=== PATIENT | male | born 1970 | race American Indian/Alaskan Native ===

== ENCOUNTER 2024-03-08 13:57 | Outpatient (AMB) | payer MEDICAID, SELFPAY ==
[2024-03-08 14:28] VITALS: BP 130/85; PULSE 76; RESP 18; TEMP 36.2; O2SAT 98; BMI 30.9
--- NOTE | 2024-03-08 14:28 | PD.ORTHCLVIS ---
Vital signs 03/08/24 14:28 Height 2.08 m Height Method Stated Weight 133.81 kg Weight Measurement Method Standing Scale BMI 30.9 BP 130/85 H Blood Pressure Source Automatic Cuff Blood Pressure Location Right Upper Arm Position Sitting Respiration 18 Pulse 76 Pulse Source Monitor Temp 97.2 F Temp Source Temporal Artery Scan Pulse Oximetry (%) 98 Oxygen Delivery Method Room Air Med/Allergies Allergies & Medications Allergies No Known Allergies Allergy (Verified 03/08/24 14:28) Medication Reconciliation meloxicam 7.5 mg tablet 7.5 mg PO QDAY #45 tabs 08/15/23 [Rx Confirmed 03/08/24] atorvastatin 10 mg tablet 10 mg PO QDAY 11/24/23 [History Confirmed 03/08/24] furosemide 20 mg tablet (Lasix) 20 mg PO QDAY 11/24/23 [History Confirmed 03/08/24] semaglutide 1 mg/dose (4 mg/3 mL) subcutaneous pen injector (Ozempic) 1 mg subcut QWEEK 11/24/23 [History Confirmed 03/08/24] doxycycline hyclate 100 mg tablet 100 mg PO BID #14 tabs 11/27/23 [Rx Confirmed 03/08/24] pregabalin 75 mg capsule 75 mg PO BID #45 caps 11/27/23 [Rx Confirmed 03/08/24] sennosides 8.6 mg-docusate sodium 50 mg tablet (Senna-S) 1 tab-cap PO QDAY #30 tabs 11/27/23 [Rx Confirmed 03/08/24] acetaminophen 500 mg tablet (Acetaminophen Extra Strength) 1,000 mg (2 x 500 mg) PO Q6H PRN pain #90 tabs 12/12/23 [Rx Confirmed 03/08/24] oxycodone 5 mg tablet 5 mg PO Q6H PRN pain #28 tabs 12/23/23 [Rx Confirmed 03/08/24] cyclobenzaprine 5 mg tablet 5 mg PO QHS PRN muscle spasm #30 tabs 01/26/24 [Rx Confirmed 03/08/24] gabapentin 300 mg capsule 300 mg PO QHS #30 caps 01/26/24 [Rx Confirmed 03/08/24] meloxicam 7.5 mg tablet 7.5 mg PO QDAY #30 tabs 02/20/24 [Rx Confirmed 03/08/24] Subjective Visit Visit for: follow up visit and knee Immunization / Flu Flu Vaccine in the Last 12 Months: No Flu Vaccine Exclusion Criteria: No Exclusion Criteria History of Present Illness Chief complaint: 6 WEEK FOLLOW UP Date of 1st surgery (if applicable): 18 YEARS AGOS RT MENISCUS TEAR Omid is 12 weeks postop status post right total knee replacement. I showed him his x-rays of the intraoperative notch. He is doing well. He is bearing full weight. Pain Pain level (0-10): 8 Pain duration: ALL DAY Pain location: anterior and posterior Pain quality: sharp, dull and aching Pain timing: increases with activity Associated signs & symptoms: stiffness Ambulatory data Ambulatory device: none Treatments Improvement with previous injections: No Improvement with PT: No Improvement with NSAIDS: n/a Review of Systems Review of Systems: All systems negative unless otherwise noted in HPI. Exam Exam Patient is in no acute distress and is cooperative with the examination today. Breathing is nonlabored. In no respiratory distress. Bilateral extremities were evaluated and demonstrates sensation intact to light touch. Palpable pedal pulses are present. No significant edema is present. Bilateral hips were examined. The patient has no pain with log roll of the hips. Internal rotation to 30 degrees and external rotation to 30 degrees is painless. Negative FADIR. The left knee was examined. The left knee is in [varus] alignment. Range of motion from [0-115] degrees. Knee is stable to varus and valgus as well as AP translation with <5mm. Patient has a [negative] McMurrays. There is [no] pain with patellofemoral compression and [no] crepitus noted. The knee is [tender] to palpation [medially]. Right knee incision is clean dry and intact. Range of motion is 0 to 105 degrees Xrays demonstrate a knee replacement on the right in good alignment and position Assessment and Plan Problem List (1) History of total right knee replacement: Status: Acute Plan: Patient is doing well s/p R TKA. His left knee hurts significantly more and he would like a knee injection. Recommend knee cortisone injection as patient would like to proceed with conservative treatment at this time. The risks and benefits of the procedure were reviewed with the patient and patient gave verbal consent to continue with the procedure. Procedure: performed by Dr. Thomas Using sterile technique the left knee was thoroughly prepped with alcohol, and approximately 1 cc of Kenalog 40 mg/mL and 4 cc of 1% lidocaine was injected without resistance into the medial tibial femoral joint space. The patient tolerated the procedure. Office Procedures GNS Level of Care Nursing/Assessment Patient Status: Established Patient Nursing Assessment/Reassesment: Medication Reconciliation, Update PMH in EMR and Vital Signs Coordination of Care: Complex Care and Chronic Disease 1-5, Education Complex Pt/Fam, Consent,records obtained, informed consent, Results/Orders obtained and Staff clarify orders Established Patient Charge Established Patient Point Assignment: 95 Established Patient Point Charge: EP Level 3 (80-115) Surgical Proc/IM SQ injection Major Surgical Procedure: Yes (KNEE INJECTION) Medication Given Medication Given Medication Given: Yes Documented Dose Given: 4 Route: Infiitration Medication Given Medication Given Medication Given: Yes Documented Dose Given: 1 Route: Infiitration Office Meds Xylocaine 10 mg/mL (1 %) injection solution Performing Provider: Barrett Thomas MD Performing Location: [facility] Administered by: Angy Adame on 03/08/24 14:48 Dose Route Admin Location Dispensed Lot Number Expiration Date [facility] [employer] 20 mL Infiltration 20 mL [id number] 01/11/27 11636-410-17 [facility] triamcinolone acetonide 40 mg/mL suspension for injection Performing Provider: Barrett Thomas MD Performing Location: [facility] Administered by: Barrett Thomas MD on 03/08/24 14:48 Dose Route Admin Location Dispensed Lot Number Expiration Date [employer] 40 mg Infiltration 1 mL [id number] 12/11/25 [address]1900-5 [employer] Past Medical History Past Medical History Have you ever been diagnosed with any of the following: Neurological Problems Seizures: No Cardiology Problems Congestive Heart Failure: No Respiratory Problems Chronic Obstructive Pulmonary Disease (COPD): No Smoking: No Smoking Exposure: No Stomache/Intestinal Problems Hepatitis: No Obesity: Yes Genital/Urinary Problems Renal Disease: No Musculoskeletal Problems Arthritis: Yes Endocrine Problems Diabetes Mellitus Type 1: No Diabetes Mellitus Type 2: No Other Problems Hospitalization: Yes (as a child 5 yrs old for surgery) Shingles: No Blood Transfusions: No Blood Transfusion Reaction: No Anesthesia Reactions: No Chicken Pox: Yes Measles: Yes Mumps: Yes Cancer: No
== END 2024-03-08 14:55 | disposition home or self-care (01) ==
LOC: HODSRG 13:57
PROVIDERS: PCP Family Medicine; Referring Provider Family Medicine; Supervising Provider Orthopaedic Surgery Adult Reconstructive Orthopaedic Surgery; Visit Provider Orthopaedic Surgery Adult Reconstructive Orthopaedic Surgery
DX: Z47.1 Aftercare following joint replacement surgery (principal); Z96.651 Presence of right artificial knee joint; M25.562 Pain in left knee
CPT/HCPCS: 20610; 99213; J3301; J3490; G0463

== ENCOUNTER 2024-05-10 10:21 | Outpatient (AMB) | payer MEDICAID, SELFPAY ==
[2024-05-10 11:00] VITALS: BP 112/78; PULSE 73; RESP 18; TEMP 36.3; O2SAT 96; BMI 39.0
--- NOTE | 2024-05-10 11:00 | PD.ORTHCLVIS ---
Vital signs 05/10/24 11:00 Height 1.88 m Height Method Stated Weight 138.062 kg Weight Measurement Method Standing Scale BMI 39.0 BP 112/78 Blood Pressure Source Automatic Cuff Blood Pressure Location Right Upper Arm Position Sitting Respiration 18 Pulse 73 Pulse Source Monitor Temp 97.3 F Temp Source Temporal Artery Scan Pulse Oximetry (%) 96 Oxygen Delivery Method Room Air Med/Allergies Allergies & Medications Allergies No Known Allergies Allergy (Verified 05/10/24 11:01) Medication Reconciliation meloxicam 7.5 mg tablet 7.5 mg PO QDAY #45 tabs 08/15/23 [Rx Confirmed 05/10/24] atorvastatin 10 mg tablet 10 mg PO QDAY 11/24/23 [History Confirmed 05/10/24] furosemide 20 mg tablet (Lasix) 20 mg PO QDAY 11/24/23 [History Confirmed 05/10/24] semaglutide 1 mg/dose (4 mg/3 mL) subcutaneous pen injector (Ozempic) 1 mg subcut QWEEK 11/24/23 [History Confirmed 05/10/24] doxycycline hyclate 100 mg tablet 100 mg PO BID #14 tabs 11/27/23 [Rx Confirmed 05/10/24] pregabalin 75 mg capsule 75 mg PO BID #45 caps 11/27/23 [Rx Confirmed 05/10/24] sennosides 8.6 mg-docusate sodium 50 mg tablet (Senna-S) 1 tab-cap PO QDAY #30 tabs 11/27/23 [Rx Confirmed 05/10/24] acetaminophen 500 mg tablet (Acetaminophen Extra Strength) 1,000 mg (2 x 500 mg) PO Q6H PRN pain #90 tabs 12/12/23 [Rx Confirmed 05/10/24] oxycodone 5 mg tablet 5 mg PO Q6H PRN pain #28 tabs 12/23/23 [Rx Confirmed 05/10/24] cyclobenzaprine 5 mg tablet 5 mg PO QHS PRN muscle spasm #30 tabs 01/26/24 [Rx Confirmed 05/10/24] gabapentin 300 mg capsule 300 mg PO QHS #30 caps 01/26/24 [Rx Confirmed 05/10/24] meloxicam 7.5 mg tablet 7.5 mg PO QDAY #30 tabs 02/20/24 [Rx Confirmed 05/10/24] Exam Exam Patient is in no acute distress and is cooperative with the examination today. Breathing is nonlabored. In no respiratory distress. Bilateral extremities were evaluated and demonstrates sensation intact to light touch. Palpable pedal pulses are present. No significant edema is present. Bilateral hips were examined. The patient has no pain with log roll of the hips. Internal rotation to 30 degrees and external rotation to 30 degrees is painless. Negative FADIR. The left knee was examined. The left knee is in [varus] alignment. Range of motion from [0-115] degrees. Knee is stable to varus and valgus as well as AP translation with <5mm. Patient has a [negative] McMurrays. There is [no] pain with patellofemoral compression and [no] crepitus noted. The knee is [tender] to palpation [medially]. Right knee incision is clean dry and intact. Range of motion is 0 to 105 degrees Xrays demonstrate a knee replacement on the right in good alignment and position Assessment and Plan Problem List (1) History of total right knee replacement: Status: Acute Plan: Patient is doing well s/p R TKA. His left knee hurts significantly more and he would like a knee injection. Recommend knee cortisone injection as patient would like to proceed with conservative treatment at this time. The risks and benefits of the procedure were reviewed with the patient and patient gave verbal consent to continue with the procedure. Procedure: performed by Dr. Thomas Using sterile technique the left knee was thoroughly prepped with alcohol, and approximately 1 cc of Kenalog 40 mg/mL and 4 cc of 1% lidocaine was injected without resistance into the medial tibial femoral joint space. The patient tolerated the procedure. Office Procedures GNS Level of Care Nursing/Assessment Patient Status: Established Patient Nursing Assessment/Reassesment: Medication Reconciliation, Update PMH in EMR and Vital Signs Coordination of Care: Complex Care and Chronic Disease 1-5, Education Complex Pt/Fam, 1 Ins Authorization and Staff clarify orders Established Patient Charge Established Patient Point Assignment: 100 Established Patient Point Charge: EP Level 3 (80-115) Surgical Proc/IM SQ injection Major Surgical Procedure: Yes (knee injection) Medication Given Medication Given Medication Given: Yes Documented Dose Given: 4 Route: Infiitration Medication Given Medication Given Medication Given: Yes Documented Dose Given: 1 Route: Infiitration Office Meds Xylocaine 10 mg/mL (1 %) injection solution Performing Provider: Barrett Thomas MD Performing Location: [facility] Administered by: Barrett Thomas MD on 05/10/24 11:49 Dose Route Admin Location Dispensed Lot Number Expiration Date [facility] [employer] 20 mL Infiltration 20 mL [id number] 12/11/26 12172-047-97 [facility] triamcinolone acetonide 40 mg/mL suspension for injection Performing Provider: Barrett Thomas MD Performing Location: [facility] Administered by: Barrett Thomas MD on 05/10/24 11:49 Dose Route Admin Location Dispensed Lot Number Expiration Date [place] [employer] 40 mg Infiltration 1 mL [id number] 10/11/25 7305-7164-11 [employer] [place] Intake Visit Data Collection New Patient or Established: Established Patient (seen at [facility] within 3 years) Reason for Visit:: LT KNEE INJECTION Seen by Clinical Staff ONLY (RN/MA): No Treatment Manager Required: No PCP or OBGYN visit in last 3 months: Yes Do You Feel Safe at Home: Yes Questionairres Past Medical History Past Medical History Have you ever been diagnosed with any of the following: Neurological Problems Seizures: No Cardiology Problems Congestive Heart Failure: No Respiratory Problems Chronic Obstructive Pulmonary Disease (COPD): No Smoking: No Smoking Exposure: No Stomache/Intestinal Problems Hepatitis: No Obesity: Yes Genital/Urinary Problems Renal Disease: No Musculoskeletal Problems Arthritis: Yes Endocrine Problems Diabetes Mellitus Type 1: No Diabetes Mellitus Type 2: No Other Problems Hospitalization: Yes (as a child 5 yrs old for surgery) Shingles: No Blood Transfusions: No Blood Transfusion Reaction: No Anesthesia Reactions: No Chicken Pox: Yes Measles: Yes Mumps: Yes Cancer: No Subjective Visit Visit for: follow up visit, knee and injections Immunization / Flu Flu Vaccine in the Last 12 Months: No Flu Vaccine Exclusion Criteria: Refused by Patient History of Present Illness Chief complaint: LT KNEE INJECTION Patient is doing well status post right knee replacement. Has minimal pain. It is 6 months since the right knee was done. He reports the left knee is affecting his quality life and happiness. He would like repeat cortisone injection on the left knee for now Personal History BMI Counceling provided: Yes Pain Pain level (0-10): 7 Pain duration: CONSTANT Pain location: inside (medial), outside (lateral), anterior and posterior Pain quality: sharp and electric Pain timing: increases with activity Associated signs & symptoms: stiffness Ambulatory data Ambulatory device: none Walking distance (minutes): 10 Treatments Number of previous injections: 1 Improvement with previous injections: Yes Improvement with NSAIDS: n/a Review of Systems Review of Systems: All systems negative unless otherwise noted in HPI.
== END 2024-05-10 11:40 | disposition home or self-care (01) ==
LOC: HODSRG 10:21
PROVIDERS: PCP Family Medicine; Referring Provider Family Medicine; Supervising Provider Orthopaedic Surgery Adult Reconstructive Orthopaedic Surgery; Visit Provider Orthopaedic Surgery Adult Reconstructive Orthopaedic Surgery
DX: M25.562 Pain in left knee (principal); Z96.651 Presence of right artificial knee joint
CPT/HCPCS: 20610; 99213; J3301; J3490; G0463

== ENCOUNTER 2024-08-08 09:11 | Outpatient (AMB) | payer MEDICAID, SELFPAY ==
[2024-08-08 09:20] VITALS: BP 143/84; PULSE 81; RESP 18; TEMP 36.6; O2SAT 97; BMI 38.5
--- NOTE | 2024-08-08 09:20 | PD.ORTHCLVIS ---
Vital signs 08/08/24 09:20 Height 1.88 m Height Method Stated Weight 136.305 kg Weight Measurement Method Standing Scale BMI 38.5 BP 143/84 H Blood Pressure Source Automatic Cuff Blood Pressure Location Left Upper Arm Position Sitting Respiration 18 Pulse 81 Pulse Source Monitor Temp 97.8 F Temp Source Temporal Artery Scan Pulse Oximetry (%) 97 Oxygen Delivery Method Room Air Med/Allergies Allergies & Medications Allergies No Known Allergies Allergy (Verified 08/08/24 09:21) Medication Reconciliation meloxicam 7.5 mg tablet 7.5 mg PO QDAY #45 tabs 08/15/23 [Rx Confirmed 08/08/24] atorvastatin 10 mg tablet 10 mg PO QDAY 11/24/23 [History Confirmed 08/08/24] furosemide 20 mg tablet (Lasix) 20 mg PO QDAY 11/24/23 [History Confirmed 08/08/24] semaglutide 1 mg/dose (4 mg/3 mL) subcutaneous pen injector (Ozempic) 1 mg subcut QWEEK 11/24/23 [History Confirmed 08/08/24] doxycycline hyclate 100 mg tablet 100 mg PO BID #14 tabs 11/27/23 [Rx Confirmed 08/08/24] pregabalin 75 mg capsule 75 mg PO BID #45 caps 11/27/23 [Rx Confirmed 08/08/24] sennosides 8.6 mg-docusate sodium 50 mg tablet (Senna-S) 1 tab-cap PO QDAY #30 tabs 11/27/23 [Rx Confirmed 08/08/24] acetaminophen 500 mg tablet (Acetaminophen Extra Strength) 1,000 mg (2 x 500 mg) PO Q6H PRN pain #90 tabs 12/12/23 [Rx Confirmed 08/08/24] oxycodone 5 mg tablet 5 mg PO Q6H PRN pain #28 tabs 12/23/23 [Rx Confirmed 08/08/24] cyclobenzaprine 5 mg tablet 5 mg PO QHS PRN muscle spasm #30 tabs 01/26/24 [Rx Confirmed 08/08/24] gabapentin 300 mg capsule 300 mg PO QHS #30 caps 01/26/24 [Rx Confirmed 08/08/24] meloxicam 7.5 mg tablet 7.5 mg PO QDAY #30 tabs 02/20/24 [Rx Confirmed 08/08/24] ibuprofen 600 mg tablet 600 mg PO Q6H PRN pain #50 tabs 07/18/24 [Rx Confirmed 08/08/24] Exam Exam Patient is in no acute distress and is cooperative with the examination today. Breathing is nonlabored. In no respiratory distress. Bilateral extremities were evaluated and demonstrates sensation intact to light touch. Palpable pedal pulses are present. No significant edema is present. Bilateral hips were examined. The patient has no pain with log roll of the hips. Internal rotation to 30 degrees and external rotation to 30 degrees is painless. Negative FADIR. The left knee was examined. The left knee is in [varus] alignment. Range of motion from [0-115] degrees. Knee is stable to varus and valgus as well as AP translation with <5mm. Patient has a [negative] McMurrays. There is [no] pain with patellofemoral compression and [no] crepitus noted. The knee is [tender] to palpation [medially]. Right knee incision is clean dry and intact. Range of motion is 0 to 105 degrees Xrays demonstrate a knee replacement on the right in good alignment and position. The left knee demonstrates severe arthritis with complete joint space obliteration Medially and varus alignment Assessment and Plan Problem List (1) History of total right knee replacement: Status: Acute Plan: Patient is doing well s/p R TKA. He had a left knee injection recently and it did not help for a long period of time. We discussed total knee replacement is a reasonable option. He has significant obliteration of the medial joint space.He is failed conservative treatment including multiple injections, and anti-inflammatories The nature and purpose of the total knee replacement, alternative method(s) of treatment, the material risks involved, and the possibility of complications were fully explained to the patient. The patient does NOT have any of the following contraindications to TKA: - Active infection of the knee joint, OR - Active systemic bacteremia, OR - Active skin infection or open wound at surgical site, OR - Neuropathic arthritis, OR - Severe, rapidly progressive neurological disease, OR - Severe medical condition that makes risks of surgery outweigh the potential benefit The patient was told the most common risks and complications associated with a total knee replacement include, but are not limited to: blood clots in the leg, fatal pulmonary embolism, dislocation of the prosthesis, intraoperative and postoperative fractures of the femur or tibia, infection, failure of the prosthesis or grafting materials, complications from anesthesia, reactions to blood transfusions, postoperative leg length inequality, instability of the knee replacement, nerve damage or injury, vascular injury, delayed wound healing, infection, other injury or even . In addition, there are risks associated with anesthesia given during this operation. Also, the patient was told that after undergoing a total knee replacement there may still be persistent pain or disability. The patient was informed that the success of this operation in part depends upon the mechanical devices which are going to be implanted and that these devices can fail or malfunction, and may need to be repaired or replaced and there are no guarantees as to the longevity of this device or its parts and that it or its parts could fail prematurely. The patient was also notified that during the course of surgery, there may be a need to use bone graft from donors, and that any bone graft used will be carefully screened for communicable diseases, including AIDS, hepatitis, Deangelo-Creutzfeldt, or other diseases, but despite the screening procedures, there is a small chance that they could contract one of these diseases. Finally, the patient was asked to follow completely and fully with all advice and recommended treatments, and that recovery and ultimate outcome are affected by their compliance with recommended treatment. We discussed the risks, benefits and treatment alternatives, and the patient is interested in proceeding with surgery. We will try to set this up as expeditiously as possible. Office Procedures GNS Level of Care Nursing/Assessment Patient Status: Established Patient Nursing Assessment/Reassesment: Medication Reconciliation, Update PMH in EMR and Vital Signs Coordination of Care: Complex Care and Chronic Disease 1-5, Education Complex Pt/Fam, Consent,records obtained, informed consent, Results/Orders obtained and Staff clarify orders Established Patient Charge Established Patient Point Assignment: 95 Established Patient Point Charge: EP Level 3 (80-115) MA Intake Visit Data Collection New Patient or Established: Established Patient (seen at [facility] within 3 years) Reason for Visit:: 3 MTH L KNEE INJ F/U Seen by Clinical Staff ONLY (RN/MA): No PCP or OBGYN visit in last 3 months: Yes Hx Now: No Do You Feel Safe at Home: Yes Authorities Contacted: N/A Questionairres Past Medical History Past Medical History Have you ever been diagnosed with any of the following: Neurological Problems Seizures: No Cardiology Problems Congestive Heart Failure: No Respiratory Problems Chronic Obstructive Pulmonary Disease (COPD): No Smoking: No Smoking Exposure: No Stomache/Intestinal Problems Hepatitis: No Obesity: Yes Genital/Urinary Problems Renal Disease: No Musculoskeletal Problems Arthritis: Yes Endocrine Problems Diabetes Mellitus Type 1: No Diabetes Mellitus Type 2: No Other Problems Hospitalization: Yes (as a child 5 yrs old for surgery) Shingles: No Blood Transfusions: No Blood Transfusion Reaction: No Anesthesia Reactions: No Chicken Pox: Yes Measles: Yes Mumps: Yes Cancer: No Subjective Visit Visit for: follow up visit, knee and injections Immunization / Flu Flu Vaccine in the Last 12 Months: No Flu Vaccine Exclusion Criteria: No Exclusion Criteria History of Present Illness Chief complaint: LT KNEE INJECTION Patient is doing well status post right knee replacement. He Has minimal pain. He had surgery on the right knee approximately 8 months ago now. He has minimal pain and is doing fantastic. He reports the left knee is starting affect his quality life and happiness. We have treated him conservatively in the past with multiple injections on the left Personal History BMI Counceling provided: Yes Pain Pain level (0-10): 9 Pain duration: COMES AND GOES Pain location: inside (medial), outside (lateral) and anterior Pain quality: sharp, dull and aching Pain timing: night, increases with activity and stairs Associated signs & symptoms: stiffness Ambulatory data Ambulatory device: none Walking distance (minutes): 10 Treatments Number of previous injections: 3 Improvement with previous injections: No Improvement with PT: No Improvement with NSAIDS: no Review of Systems Review of Systems: All systems negative unless otherwise noted in HPI.
== END 2024-08-08 09:50 | disposition home or self-care (01) ==
LOC: HODSRG 09:11
PROVIDERS: PCP Family Medicine; Referring Provider Family Medicine; Supervising Provider Orthopaedic Surgery Adult Reconstructive Orthopaedic Surgery; Visit Provider Orthopaedic Surgery Adult Reconstructive Orthopaedic Surgery
DX: Z96.651 Presence of right artificial knee joint (principal); M25.862 Other specified joint disorders, left knee
CPT/HCPCS: 99213; G0463

== ENCOUNTER 2024-08-29 14:50 | Outpatient (AMB) | payer MEDICAID, SELFPAY ==
[2024-08-29 15:06] VITALS: BP 125/82; PULSE 80; RESP 18; TEMP 36.4; O2SAT 94; BMI 38.4
--- NOTE | 2024-08-29 15:06 | PD.ORTHCLVIS ---
Vital signs 08/29/24 15:06 Height 1.88 m Height Method Measured Weight 135.709 kg Weight Measurement Method Standing Scale BMI 38.4 BP 125/82 Blood Pressure Source Automatic Cuff Blood Pressure Location Right Upper Arm Position Sitting Respiration 18 Pulse 80 Pulse Source Monitor Temp 97.6 F Temp Source Temporal Artery Scan Pulse Oximetry (%) 94 L Oxygen Delivery Method Room Air Med/Allergies Allergies & Medications Allergies No Known Allergies Allergy (Verified 08/29/24 15:08) Medication Reconciliation meloxicam 7.5 mg tablet 7.5 mg PO QDAY #45 tabs 08/15/23 [Rx Confirmed 08/29/24] atorvastatin 10 mg tablet 10 mg PO QDAY 11/24/23 [History Confirmed 08/29/24] furosemide 20 mg tablet (Lasix) 20 mg PO QDAY 11/24/23 [History Confirmed 08/29/24] semaglutide 1 mg/dose (4 mg/3 mL) subcutaneous pen injector (Ozempic) 1 mg subcut QWEEK 11/24/23 [History Confirmed 08/29/24] doxycycline hyclate 100 mg tablet 100 mg PO BID #14 tabs 11/27/23 [Rx Confirmed 08/29/24] pregabalin 75 mg capsule 75 mg PO BID #45 caps 11/27/23 [Rx Confirmed 08/29/24] sennosides 8.6 mg-docusate sodium 50 mg tablet (Senna-S) 1 tab-cap PO QDAY #30 tabs 11/27/23 [Rx Confirmed 08/29/24] acetaminophen 500 mg tablet (Acetaminophen Extra Strength) 1,000 mg (2 x 500 mg) PO Q6H PRN pain #90 tabs 12/12/23 [Rx Confirmed 08/29/24] oxycodone 5 mg tablet 5 mg PO Q6H PRN pain #28 tabs 12/23/23 [Rx Confirmed 08/29/24] cyclobenzaprine 5 mg tablet 5 mg PO QHS PRN muscle spasm #30 tabs 01/26/24 [Rx Confirmed 08/29/24] gabapentin 300 mg capsule 300 mg PO QHS #30 caps 01/26/24 [Rx Confirmed 08/29/24] meloxicam 7.5 mg tablet 7.5 mg PO QDAY #30 tabs 02/20/24 [Rx Confirmed 08/29/24] ibuprofen 600 mg tablet 600 mg PO Q6H PRN pain #50 tabs 07/18/24 [Rx Confirmed 08/29/24] Exam Exam Patient is in no acute distress and is cooperative with the examination today. Breathing is nonlabored. In no respiratory distress. Bilateral extremities were evaluated and demonstrates sensation intact to light touch. Palpable pedal pulses are present. No significant edema is present. Bilateral hips were examined. The patient has no pain with log roll of the hips. Internal rotation to 30 degrees and external rotation to 30 degrees is painless. Negative FADIR. The left knee was examined. The left knee is in [varus] alignment. Range of motion from [0-115] degrees. Knee is stable to varus and valgus as well as AP translation with <5mm. Patient has a [negative] McMurrays. There is [no] pain with patellofemoral compression and [no] crepitus noted. The knee is [tender] to palpation [medially]. Right knee incision is clean dry and intact. Range of motion is 0 to 105 degrees Xrays demonstrate a knee replacement on the right in good alignment and position. The left knee demonstrates severe arthritis with complete joint space obliteration Medially and varus alignment. The left knee x-rays were from a year ago on 08/15/2023 and we will get new left knee x-rays Assessment and Plan Problem List (1) History of total right knee replacement: Status: Acute Plan: Patient is doing well s/p R TKA. He had a left knee injection recently and it did not help for a long period of time. He has tried multiple injections, anti-inflammatories, a home exercise program, and 60 pounds of weight loss as previously mentioned. He is also tried physical therapy when he was working with his other knee. The pain is affecting his quality life and happiness and he is made considerable attempts for nonoperative treatment and has tried everything we have ever asked them. The nature and purpose of the total knee replacement, alternative method(s) of treatment, the material risks involved, and the possibility of complications were fully explained to the patient. The patient does NOT have any of the following contraindications to TKA: - Active infection of the knee joint, OR - Active systemic bacteremia, OR - Active skin infection or open wound at surgical site, OR - Neuropathic arthritis, OR - Severe, rapidly progressive neurological disease, OR - Severe medical condition that makes risks of surgery outweigh the potential benefit The patient was told the most common risks and complications associated with a total knee replacement include, but are not limited to: blood clots in the leg, fatal pulmonary embolism, dislocation of the prosthesis, intraoperative and postoperative fractures of the femur or tibia, infection, failure of the prosthesis or grafting materials, complications from anesthesia, reactions to blood transfusions, postoperative leg length inequality, instability of the knee replacement, nerve damage or injury, vascular injury, delayed wound healing, infection, other injury or even . In addition, there are risks associated with anesthesia given during this operation. Also, the patient was told that after undergoing a total knee replacement there may still be persistent pain or disability. The patient was informed that the success of this operation in part depends upon the mechanical devices which are going to be implanted and that these devices can fail or malfunction, and may need to be repaired or replaced and there are no guarantees as to the longevity of this device or its parts and that it or its parts could fail prematurely. The patient was also notified that during the course of surgery, there may be a need to use bone graft from donors, and that any bone graft used will be carefully screened for communicable diseases, including AIDS, hepatitis, Deangelo-Creutzfeldt, or other diseases, but despite the screening procedures, there is a small chance that they could contract one of these diseases. Finally, the patient was asked to follow completely and fully with all advice and recommended treatments, and that recovery and ultimate outcome are affected by their compliance with recommended treatment. We discussed the risks, benefits and treatment alternatives, and the patient is interested in proceeding with surgery. We will try to set this up as expeditiously as possible. (2) Arthritis of left knee: Status: Acute Plan: Omid is a pleasant 53-year-old male with severe left knee arthritis of significant severity. We previously did his right total knee replacement and he did well from that. He is lost over 60 pounds at this point from his peak weight. He has tried home exercise programs which has been limited due to pain as well as physical therapy in the past. He is also tried multiple anti-inflammatories and several injections which are no longer providing durable pain relief. Given his failure of conservative treatment, he is a suitable candidate for a total Knee replacement and is as optimized as can be. I would like to proceed with a left total knee replacement as he has failed all conservative options at this point The nature and purpose of the total knee replacement, alternative method(s) of treatment, the material risks involved, and the possibility of complications were fully explained to the patient. The patient does NOT have any of the following contraindications to TKA: - Active infection of the knee joint, OR - Active systemic bacteremia, OR - Active skin infection or open wound at surgical site, OR - Neuropathic arthritis, OR - Severe, rapidly progressive neurological disease, OR - Severe medical condition that makes risks of surgery outweigh the potential benefit The patient was told the most common risks and complications associated with a total knee replacement include, but are not limited to: blood clots in the leg, fatal pulmonary embolism, dislocation of the prosthesis, intraoperative and postoperative fractures of the femur or tibia, infection, failure of the prosthesis or grafting materials, complications from anesthesia, reactions to blood transfusions, postoperative leg length inequality, instability of the knee replacement, nerve damage or injury, vascular injury, delayed wound healing, infection, other injury or even . In addition, there are risks associated with anesthesia given during this operation. Also, the patient was told that after undergoing a total knee replacement there may still be persistent pain or disability. The patient was informed that the success of this operation in part depends upon the mechanical devices which are going to be implanted and that these devices can fail or malfunction, and may need to be repaired or replaced and there are no guarantees as to the longevity of this device or its parts and that it or its parts could fail prematurely. The patient was also notified that during the course of surgery, there may be a need to use bone graft from donors, and that any bone graft used will be carefully screened for communicable diseases, including AIDS, hepatitis, Deangelo-Creutzfeldt, or other diseases, but despite the screening procedures, there is a small chance that they could contract one of these diseases. Finally, the patient was asked to follow completely and fully with all advice and recommended treatments, and that recovery and ultimate outcome are affected by their compliance with recommended treatment. We discussed the risks, benefits and treatment alternatives, and the patient is interested in proceeding with surgery. We will try to set this up as expeditiously as possible. Office Procedures GNS Level of Care Nursing/Assessment Patient Status: Established Patient Nursing Assessment/Reassesment: Medication Reconciliation, Update PMH in EMR and Vital Signs Coordination of Care: Complex Care and Chronic Disease 1-5, Education Complex Pt/Fam, Consent,records obtained, informed consent, 1 Ins Authorization, Lab and Imaging orders, Results/Orders obtained and Staff clarify orders Established Patient Charge Established Patient Point Assignment: 125 Established Patient Point Charge: EP Level 4 (120-155) MA Intake Visit Data Collection New Patient or Established: Established Patient (seen at [facility] within 3 years) Reason for Visit:: Follow up weightless Seen by Clinical Staff ONLY (RN/MA): No Verbal consent obtained for Telemed visit?: No Scenery Builder Required: No PCP or OBGYN visit in last 3 months: Yes Hx Now: No Do You Feel Safe at Home: Yes Authorities Contacted: N/A Questionairres Past Medical History Past Medical History Have you ever been diagnosed with any of the following: Neurological Problems Seizures: No Cardiology Problems Congestive Heart Failure: No Respiratory Problems Chronic Obstructive Pulmonary Disease (COPD): No Smoking: No Smoking Exposure: No Stomache/Intestinal Problems Hepatitis: No Obesity: Yes Genital/Urinary Problems Renal Disease: No Musculoskeletal Problems Arthritis: Yes Endocrine Problems Diabetes Mellitus Type 1: No Diabetes Mellitus Type 2: No Other Problems Hospitalization: Yes (as a child 5 yrs old for surgery) Shingles: No Blood Transfusions: No Blood Transfusion Reaction: No Anesthesia Reactions: No Chicken Pox: Yes Measles: Yes Mumps: Yes Cancer: No Subjective Visit Visit for: follow up visit, knee and injections Immunization / Flu Flu Vaccine in the Last 12 Months: No Flu Vaccine Exclusion Criteria: No Exclusion Criteria History of Present Illness Chief complaint: f/u weightloss Patient is doing well status post right knee replacement. He Has minimal pain. He had surgery on the right knee approximately 10 months ago now. He has minimal pain and is doing fantastic with the right knee. He reports the left knee is starting to affect his quality life and happiness. The pain has been ongoing for several years. He has tried home exercises in the past but is unable to because it is too painful. He is also tried physical therapy especially when he was working with the contralateral knee. His BMI is currently 38.5 and he has made a considerable attempt to lose weight and is now down 60 pounds from his peak weight Which was 359. We have treated him conservatively in the past with multiple injections on the left. The x-rays that he previously had showed [id number] arthritis and I am not sure why a repeat x-ray is needed given that he has [id number] arthritis but we will order a new one as well. Personal History Red flag PMH: BMI BMI Counceling provided: Yes Pain Pain level (0-10): 10 Pain duration: all day Pain location: inside (medial), outside (lateral), anterior and posterior Pain quality: sharp, dull and aching Pain timing: night, increases with activity and stairs Associated signs & symptoms: numbness, weakness and stiffness Ambulatory data Ambulatory device: none Walking distance (minutes): 10 Treatments Number of previous injections: 1 Improvement with previous injections: Yes Improvement with PT: No Improvement with NSAIDS: n/a Review of Systems Review of Systems: All systems negative unless otherwise noted in HPI.
--- NOTE | 2024-08-29 15:10 | XR_ITS ---
Examination: Bilateral knees 2 views Right lateral knee left lateral knee 2 views Bilateral axial knees single view TECHNIQUE: Bilateral AP knees standing single view, bilateral PA knees standing single view flexion Standing right lateral knee left lateral knee 2 views Bilateral axial knees single view total 5 views Exam date and time: August 29, 2024 1514 hours INDICATIONS: Bilateral knee pain several years right knee replacement one year ago. FINDINGS: Moderate osteopenia. Total right knee arthroplasty with satisfactory alignment. No loosening of the prosthetic components Severe narrowing [id number] medial joint space left knee Advanced osteoarthritis lateral and patellofemoral joints left knee IMPRESSION: Advanced left knee tricompartment osteoarthritis, including severe narrowing, [id number], medial joint space left knee
== END 2024-08-29 15:12 | disposition home or self-care (01) ==
LOC: HODSRG 14:50
PROVIDERS: PCP Family Medicine; Referring Provider Family Medicine; Supervising Provider Orthopaedic Surgery Adult Reconstructive Orthopaedic Surgery; Visit Provider Orthopaedic Surgery Adult Reconstructive Orthopaedic Surgery
DX: Z96.651 Presence of right artificial knee joint (principal); M17.12 Unilateral primary osteoarthritis, left knee
CPT/HCPCS: 73564; 99214; G0463

== ENCOUNTER 2024-09-27 08:08 | Outpatient (AMB) | payer MEDICAID, SELFPAY ==
--- NOTE | 2024-09-27 08:20 | ORTHONT_ITS ---
Vital signs 09/27/24 08:21 Height 1.88 m Height Method Measured Weight 134.518 kg Weight Measurement Method Standing Scale BMI 38.0 BP 134/83 H Blood Pressure Source Automatic Cuff Blood Pressure Location Left Upper Arm Position Sitting Respiration 19 Pulse 77 Pulse Source Monitor Temp 98.0 F Temp Source Temporal Artery Scan Pulse Oximetry (%) 96 Oxygen Delivery Method Room Air Med/Allergies Allergies & Medications Allergies No Known Allergies Allergy (Verified 09/27/24 08:27) Medication Reconciliation meloxicam 7.5 mg tablet 7.5 mg PO QDAY #45 tabs 08/15/23 [Rx Confirmed 09/27/24] atorvastatin 10 mg tablet 10 mg PO QDAY 11/24/23 [History Confirmed 09/27/24] furosemide 20 mg tablet (Lasix) 20 mg PO QDAY 11/24/23 [History Confirmed 09/27/24] semaglutide 1 mg/dose (4 mg/3 mL) subcutaneous pen injector (Ozempic) 1 mg subcut QWEEK 11/24/23 [History Confirmed 09/27/24] doxycycline hyclate 100 mg tablet 100 mg PO BID #14 tabs 11/27/23 [Rx Confirmed 09/27/24] pregabalin 75 mg capsule 75 mg PO BID #45 caps 11/27/23 [Rx Confirmed 09/27/24] sennosides 8.6 mg-docusate sodium 50 mg tablet (Senna-S) 1 tab-cap PO QDAY #30 tabs 11/27/23 [Rx Confirmed 09/27/24] acetaminophen 500 mg tablet (Acetaminophen Extra Strength) 1,000 mg (2 x 500 mg) PO Q6H PRN pain #90 tabs 12/12/23 [Rx Confirmed 09/27/24] oxycodone 5 mg tablet 5 mg PO Q6H PRN pain #28 tabs 12/23/23 [Rx Confirmed 09/27/24] cyclobenzaprine 5 mg tablet 5 mg PO QHS PRN muscle spasm #30 tabs 01/26/24 [Rx Confirmed 09/27/24] gabapentin 300 mg capsule 300 mg PO QHS #30 caps 01/26/24 [Rx Confirmed 09/27/24] meloxicam 7.5 mg tablet 7.5 mg PO QDAY #30 tabs 02/20/24 [Rx Confirmed 09/27/24] ibuprofen 600 mg tablet 600 mg PO Q6H PRN pain #50 tabs 07/18/24 [Rx Confirmed 09/27/24] Exam Exam Patient is in no acute distress and is cooperative with the examination today. Breathing is nonlabored. In no respiratory distress. Bilateral extremities were evaluated and demonstrates sensation intact to light touch. Palpable pedal pulses are present. No significant edema is present. Bilateral hips were examined. The patient has no pain with log roll of the hips. Internal rotation to 30 degrees and external rotation to 30 degrees is painless. Negative FADIR. The left knee was examined. The left knee is in [varus] alignment. Range of motion from 0-115 degrees. Knee is stable to varus and valgus as well as AP translation with <5mm. Patient has a negative McMurrays. There is no pain with patellofemoral compression and no crepitus noted. The knee is tender to palpa tion [medially]. Right knee incision is clean dry and intact. Range of motion is 0 to 105 degrees Xrays demonstrate a knee replacement on the right in good alignment and position. The left knee demonstrates severe arthritis with complete joint space obliteration Medially and varus alignment. The left knee x-rays were from a year ago on 08/15/2023 and we will get new left knee x-rays Assessment and Plan Problem List (1) Arthritis of left knee: Status: Acute Plan: Netta Anne is a pleasant 53-year-old male with a prior right total knee replacement and severe arthritis of his left knee. He has tried multiple injections on the left knee as well as significant weight loss over 64 pounds as well as anti-inflammatories and over 1 year of home exercises. At this point, he has tried everything we asked him, and the pain is affecting his quality of life and happiness. We have tried to previously submit for authorization for a total knee replacement and it was denied by his insurance. He has continued to lose more weight and has lost another 10 pounds since we originally's try to get his left knee replaced. At this point in time, I think it is a little crazy that we are still trying to get approval for this surgery. I am not sure what else we can do at this point as he has done everything I have asked. I do think that a total knee replacement is a very reasonable option given that he has [id number] arthritis and is a very compliant patient. The knee pain is affecting his quality of life and his ability to work. The nature and purpose of the total knee replacement, alternative method(s) of treatment, the material risks involved, and the possibility of complications were fully explained to the patient. The patient does NOT have any of the following contraindications to TKA: - Active infection of the knee joint, OR - Active systemic bacteremia, OR - Active skin infection or open wound at surgical site, OR - Neuropathic arthritis, OR - Severe, rapidly progressive neurological disease, OR - Severe medical condition that makes risks of surgery outweigh the potential benefit The patient was told the most common risks and complications associated with a total knee replacement include, but are not limited to: blood clots in the leg, fatal pulmonary embolism, dislocation of the prosthesis, intraoperative and postoperative fractures of the femur or tibia, infection, failure of the prosthesis or grafting materials, complications from anesthesia, reactions to blood transfusions, postoperative leg length inequality, instability of the knee replacement, nerve damage or injury, vascular injury, delayed wound healing, infection, other injury or even . In addition, there are risks associated with anesthesia given during this operation. Also, the patient was told that after undergoing a total knee replacement there may still be persistent pain or disability. The patient was informed that the success of this operation in part depends upon the mechanical devices which are going to be implanted and that these devices can fail or malfunction, and may need to be repaired or replaced and there are no guarantees as to the longevity of this device or its parts and that it or its parts could fail prematurely. The patient was also notified that during the course of surgery, there may be a need to use bone graft from donors, and that any bone graft used will be carefully screened for communicable diseases, including AIDS, hepatitis, Deangelo-Creutzfeldt, or other diseases, but despite the screening procedures, there is a small chance that they could contract one of these diseases. Finally, the patient was asked to follow completely and fully with all advice and recommended treatments, and that recovery and ultimate outcome are affected by their compliance with recommended treatment. We discussed the risks, benefits and treatment alternatives, and the patient is interested in proceeding with surgery. We will try to set this up as expeditiously as possible. (2) History of total right knee replacement: Status: Acute Office Procedures GNS Level of Care Nursing/Assessment Patient Status: Established Patient Nursing Assessment/Reassesment: Medication Reconciliation, Update PMH in EMR and Vital Signs Coordination of Care: Complex Care and Chronic Disease 1-5, Education Complex Pt/Fam, Consent,records obtained, informed consent, Results/Orders obtained and Staff clarify orders Established Patient Charge Established Patient Point Assignment: 95 Established Patient Point Charge: EP Level 3 (80-115) MA Intake Visit Data Collection New Patient or Established: Established Patient (seen at [facility] within 3 years) Reason for Visit:: F/U WEIGHT LOSS Seen by Clinical Staff ONLY (RN/MA): No PCP or OBGYN visit in last 3 months: Yes Hx Now: No Do You Feel Safe at Home: Yes Authorities Contacted: N/A Questionairres Past Medical History Past Medical History Have you ever been diagnosed with any of the following: Neurological Problems Seizures: No Cardiology Problems Congestive Heart Failure: No Respiratory Problems Chronic Obstructive Pulmonary Disease (COPD): No Smoking: No Smoking Exposure: No Stomache/Intestinal Problems Hepatitis: No Obesity: Yes Genital/Urinary Problems Renal Disease: No Musculoskeletal Problems Arthritis: Yes Endocrine Problems Diabetes Mellitus Type 1: No Diabetes Mellitus Type 2: No Other Problems Hospitalization: Yes (as a child 5 yrs old for surgery) Shingles: No Blood Transfusions: No Blood Transfusion Reaction: No Anesthesia Reactions: No Chicken Pox: Yes Measles: Yes Mumps: Yes Cancer: No Subjective Visit Visit for: follow up visit and knee Immunization / Flu Flu Vaccine in the Last 12 Months: No Flu Vaccine Exclusion Criteria: No Exclusion Criteria History of Present Illness Chief complaint: f/u weightloss Patient is doing well status post right knee replacement. He Has minimal pain. He had surgery on the right knee approximately 12months ago now. He has minimal pain and is doing fantastic with the right knee. The left knee is starting to affect his quality life and happiness. The pain has been ongoing for several years. He has tried home exercises in the past but is unable to because it is too painful. The patient has been doing 11 months of home exercises and has tried injections (>6) in his knee. He is also lost over 64 pounds in order to get a knee replacement. He is actually lost another 10 pounds in the last 2 months. I think he is as optimized as he can for surgery. We previously tried to do surgery but it was denied by insurance. At this point, I think he has exhausted conservative treatment and a total knee replacement is the only reasonable option given that he has tried everything already. He also did well with the contralateral side and has made every attempt to lose even more weight even though his BMI looks very good for his age at 38. Personal History Red flag PMH: BMI BMI Counceling provided: Yes Pain Pain level (0-10): 7 Pain duration: ALL DAY Pain location: inside (medial), outside (lateral) and anterior Pain quality: sharp, dull and aching Pain timing: night, increases with activity and stairs Associated signs & symptoms: numbness, weakness and stiffness Ambulatory data Ambulatory device: none Walking distance (minutes): 10 Treatments Number of previous injections: 1 Improvement with previous injections: No Improvement with PT: No Improvement with NSAIDS: no Review of Systems Review of Systems: All systems negative unless otherwise noted in HPI.
[2024-09-27 08:21] VITALS: BP 134/83; PULSE 77; RESP 19; TEMP 36.7; O2SAT 96; BMI 38.0
== END 2024-09-27 08:46 | disposition home or self-care (01) ==
LOC: HODSRG 08:08
PROVIDERS: PCP Family Medicine; Referring Provider Family Medicine; Supervising Provider Orthopaedic Surgery Adult Reconstructive Orthopaedic Surgery; Visit Provider Orthopaedic Surgery Adult Reconstructive Orthopaedic Surgery
DX: M17.12 Unilateral primary osteoarthritis, left knee (principal); Z96.651 Presence of right artificial knee joint
CPT/HCPCS: 99213; G0463

== ENCOUNTER 2024-10-17 13:32 | Outpatient (AMB) | payer MEDICAID, SELFPAY ==
--- NOTE | 2024-10-17 14:04 | PD.ORTHCLVIS ---
Vital signs 10/17/24 14:05 Height 1.88 m Height Method Stated Weight 130.89 kg Weight Measurement Method Standing Scale BMI 37.0 BP 134/85 H Blood Pressure Source Automatic Cuff Blood Pressure Location Left Upper Arm Position Sitting Respiration 18 Pulse 77 Pulse Source Monitor Temp 98.0 F Temp Source Temporal Artery Scan Pulse Oximetry (%) 96 Oxygen Delivery Method Room Air Med/Allergies Allergies & Medications Allergies No Known Allergies Allergy (Verified 10/17/24 14:05) Medication Reconciliation meloxicam 7.5 mg tablet 7.5 mg PO QDAY #45 tabs 08/15/23 [Rx Confirmed 10/17/24] atorvastatin 10 mg tablet 10 mg PO QDAY 11/24/23 [History Confirmed 10/17/24] furosemide 20 mg tablet (Lasix) 20 mg PO QDAY 11/24/23 [History Confirmed 10/17/24] semaglutide 1 mg/dose (4 mg/3 mL) subcutaneous pen injector (Ozempic) 1 mg subcut QWEEK 11/24/23 [History Confirmed 10/17/24] doxycycline hyclate 100 mg tablet 100 mg PO BID #14 tabs 11/27/23 [Rx Confirmed 10/17/24] pregabalin 75 mg capsule 75 mg PO BID #45 caps 11/27/23 [Rx Confirmed 10/17/24] sennosides 8.6 mg-docusate sodium 50 mg tablet (Senna-S) 1 tab-cap PO QDAY #30 tabs 11/27/23 [Rx Confirmed 10/17/24] acetaminophen 500 mg tablet (Acetaminophen Extra Strength) 1,000 mg (2 x 500 mg) PO Q6H PRN pain #90 tabs 12/12/23 [Rx Confirmed 10/17/24] oxycodone 5 mg tablet 5 mg PO Q6H PRN pain #28 tabs 12/23/23 [Rx Confirmed 10/17/24] cyclobenzaprine 5 mg tablet 5 mg PO QHS PRN muscle spasm #30 tabs 01/26/24 [Rx Confirmed 10/17/24] gabapentin 300 mg capsule 300 mg PO QHS #30 caps 01/26/24 [Rx Confirmed 10/17/24] meloxicam 7.5 mg tablet 7.5 mg PO QDAY #30 tabs 02/20/24 [Rx Confirmed 10/17/24] ibuprofen 600 mg tablet 600 mg PO Q6H PRN pain #50 tabs 10/15/24 [Rx Confirmed 10/17/24] Exam Exam Patient is in no acute distress and is cooperative with the examination today. Breathing is nonlabored. In no respiratory distress. Bilateral extremities were evaluated and demonstrates sensation intact to light touch. Palpable pedal pulses are present. No significant edema is present. Bilateral hips were examined. The patient has no pain with log roll of the hips. Internal rotation to 30 degrees and external rotation to 30 degrees is painless. Negative FADIR. The left knee was examined. The left knee is in [varus] alignment. Range of motion from 0-115 degrees. Knee is stable to varus and valgus as well as AP translation with <5mm. Patient has a negative McMurrays. There is no pain with patellofemoral compression and no crepitus noted. The knee is tender to palpation [medially]. Right knee incision is clean dry and intact. Range of motion is 0 to 105 degrees Xrays demonstrate a knee replacement on the right in good alignment and position. The left knee demonstrates severe arthritis with complete joint space obliteration Medially and varus alignment. The left knee x-rays were from a year ago on 08/15/2023 and we will get new left knee x-rays Assessment and Plan Problem List (1) Arthritis of left knee: Status: Acute Plan: Netta Anne is a pleasant 53-year-old male with a prior right total knee replacement and severe arthritis of his left knee. He has tried multiple injections and has lost over 75 pounds now. He is waiting to get his left knee replaced and has [id number] arthritis. We are having difficulty getting approval for some reason. At this point it is very difficult to figure out what to do is he has [id number] arthritis and cannot work because of it. We are thus giving him 2 more months of disability. He would like to hold off on a cortisone injection on the left knee at this time because this would delay surgery and we are still waiting approval from insurance. The nature and purpose of the total knee replacement, alternative method(s) of treatment, the material risks involved, and the possibility of complications were fully explained to the patient. The patient does NOT have any of the following contraindications to TKA: - Active infection of the knee joint, OR - Active systemic bacteremia, OR - Active skin infection or open wound at surgical site, OR - Neuropathic arthritis, OR - Severe, rapidly progressive neurological disease, OR - Severe medical condition that makes risks of surgery outweigh the potential benefit The patient was told the most common risks and complications associated with a total knee replacement include, but are not limited to: blood clots in the leg, fatal pulmonary embolism, dislocation of the prosthesis, intraoperative and postoperative fractures of the femur or tibia, infection, failure of the prosthesis or grafting materials, complications from anesthesia, reactions to blood transfusions, postoperative leg length inequality, instability of the knee replacement, nerve damage or injury, vascular injury, delayed wound healing, infection, other injury or even . In addition, there are risks associated with anesthesia given during this operation. Also, the patient was told that after undergoing a total knee replacement there may still be persistent pain or disability. The patient was informed that the success of this operation in part depends upon the mechanical devices which are going to be implanted and that these devices can fail or malfunction, and may need to be repaired or replaced and there are no guarantees as to the longevity of this device or its parts and that it or its parts could fail prematurely. The patient was also notified that during the course of surgery, there may be a need to use bone graft from donors, and that any bone graft used will be carefully screened for communicable diseases, including AIDS, hepatitis, Deangelo-Creutzfeldt, or other diseases, but despite the screening procedures, there is a small chance that they could contract one of these diseases. Finally, the patient was asked to follow completely and fully with all advice and recommended treatments, and that recovery and ultimate outcome are affected by their compliance with recommended treatment. We discussed the risks, benefits and treatment alternatives, and the patient is interested in proceeding with surgery. We will try to set this up as expeditiously as possible. (2) History of total right knee replacement: Status: Acute Office Procedures GNS Level of Care Nursing/Assessment Patient Status: Established Patient Nursing Assessment/Reassesment: Medication Reconciliation, Update PMH in EMR and Vital Signs Coordination of Care: Complex Care and Chronic Disease 1-5, Education Complex Pt/Fam, Consent,records obtained, informed consent, Results/Orders obtained and Staff clarify orders Established Patient Charge Established Patient Point Assignment: 95 Established Patient Point Charge: Level 3 (80-115) MA Intake Visit Data Collection New Patient or Established: Established Patient (seen at [facility] within 3 years) Reason for Visit:: FOLLOW UP KNEE PAIN/POSS INJ Seen by Clinical Staff ONLY (RN/MA): No PCP or OBGYN visit in last 3 months: Yes Hx Now: No Do You Feel Safe at Home: Yes Authorities Contacted: N/A Questionairres Past Medical History Past Medical History Have you ever been diagnosed with any of the following: Neurological Problems Seizures: No Cardiology Problems Congestive Heart Failure: No Respiratory Problems Chronic Obstructive Pulmonary Disease (COPD): No Smoking: No Smoking Exposure: No Stomache/Intestinal Problems Hepatitis: No Obesity: Yes Genital/Urinary Problems Renal Disease: No Musculoskeletal Problems Arthritis: Yes Endocrine Problems Diabetes Mellitus Type 1: No Diabetes Mellitus Type 2: No Other Problems Hospitalization: Yes (as a child 5 yrs old for surgery) Shingles: No Blood Transfusions: No Blood Transfusion Reaction: No Anesthesia Reactions: No Chicken Pox: Yes Measles: Yes Mumps: Yes Cancer: No Subjective Visit Visit for: follow up visit and knee Immunization / Flu Flu Vaccine in the Last 12 Months: No Flu Vaccine Exclusion Criteria: No Exclusion Criteria History of Present Illness Chief complaint: f/u weightloss Patient is doing well status post right knee replacement. He Has minimal pain. He had surgery on the right knee approximately 12months ago now. He has minimal pain and is doing fantastic with the right knee. The left knee is starting to affect his quality life and happiness. The pain has been ongoing for several years. He has tried home exercises in the past but is unable to because it is too painful. The patient has been doing 11 months of home exercises and has tried injections (>6) in his knee. He is also lost over 64 pounds in order to get a knee replacement. He is actually lost another 10 pounds in the last 2 months. I think he is as optimized as he can for surgery. We previously tried to do surgery but it was denied by insurance. At this point, I think he has exhausted conservative treatment and a total knee replacement is the only reasonable option given that he has tried everything already. He also did well with the contralateral side and has made every attempt to lose even more weight even though his BMI looks very good for his age at 37. He has lost another 10 pounds since I have seen him 3 weeks ago Personal History Red flag PMH: BMI BMI Counceling provided: Yes Pain Pain level (0-10): 7 Pain duration: ALL DAY Pain location: inside (medial), outside (lateral) and anterior Pain quality: sharp, dull and aching Pain timing: night, increases with activity and stairs Associated signs & symptoms: numbness Ambulatory data Ambulatory device: none Walking distance (minutes): 10 Treatments Number of previous injections: 1 Improvement with previous injections: No Improvement with PT: No Improvement with NSAIDS: no Review of Systems Review of Systems: All systems negative unless otherwise noted in HPI.
[2024-10-17 14:05] VITALS: BP 134/85; PULSE 77; RESP 18; TEMP 36.7; O2SAT 96; BMI 37.0
== END 2024-10-17 14:39 | disposition home or self-care (01) ==
LOC: HODSRG 13:32
PROVIDERS: PCP Family Medicine; Referring Provider Family Medicine; Supervising Provider Orthopaedic Surgery Adult Reconstructive Orthopaedic Surgery; Visit Provider Orthopaedic Surgery Adult Reconstructive Orthopaedic Surgery
DX: M17.12 Unilateral primary osteoarthritis, left knee (principal); Z96.651 Presence of right artificial knee joint
CPT/HCPCS: 99213; G0463

== ENCOUNTER 2025-01-16 10:19 | Outpatient (AMB) | payer MEDICAID, SELFPAY ==
[2025-01-16 10:52] VITALS: BP 127/90; PULSE 75; RESP 19; TEMP 36.6; O2SAT 93; BMI 37.0
--- NOTE | 2025-01-16 10:52 | ORTHONT_ITS ---
Vital signs 01/16/25 10:52 Height 1.88 m Height Method Stated Weight 131.088 kg Weight Measurement Method Standing Scale BMI 37.0 BP 127/90 H Blood Pressure Source Automatic Cuff Blood Pressure Location Left Upper Arm Position Sitting Respiration 19 Pulse 75 Pulse Source Monitor Temp 97.9 F Temp Source Temporal Artery Scan Pulse Oximetry (%) 93 L Oxygen Delivery Method Room Air Med/Allergies Allergies & Medications Allergies No Known Allergies Allergy (Verified 01/16/25 10:53) Medication Reconciliation meloxicam 7.5 mg tablet 7.5 mg PO QDAY #45 tabs 08/15/23 [Rx Confirmed 01/16/25] atorvastatin 10 mg tablet 10 mg PO QDAY 11/24/23 [History Confirmed 01/16/25] furosemide 20 mg tablet (Lasix) 20 mg PO QDAY 11/24/23 [History Confirmed 01/16/25] semaglutide 1 mg/dose (4 mg/3 mL) subcutaneous pen injector (Ozempic) 1 mg subcut QWEEK 11/24/23 [History Confirmed 01/16/25] doxycycline hyclate 100 mg tablet 100 mg PO BID #14 tabs 11/27/23 [Rx Confirmed 01/16/25] pregabalin 75 mg capsule 75 mg PO BID #45 caps 11/27/23 [Rx Confirmed 01/16/25] sennosides 8.6 mg-docusate sodium 50 mg tablet (Senna-S) 1 tab-cap PO QDAY #30 tabs 11/27/23 [Rx Confirmed 01/16/25] acetaminophen 500 mg tablet (Acetaminophen Extra Strength) 1,000 mg (2 x 500 mg) PO Q6H PRN pain #90 tabs 12/12/23 [Rx Confirmed 01/16/25] oxycodone 5 mg tablet 5 mg PO Q6H PRN pain #28 tabs 12/23/23 [Rx Confirmed 01/16/25] cyclobenzaprine 5 mg tablet 5 mg PO QHS PRN muscle spasm #30 tabs 01/26/24 [Rx Confirmed 01/16/25] gabapentin 300 mg capsule 300 mg PO QHS #30 caps 01/26/24 [Rx Confirmed 01/16/25] meloxicam 7.5 mg tablet 7.5 mg PO QDAY #30 tabs 10/08/24 [Rx Confirmed 01/16/25] ibuprofen 600 mg tablet 600 mg PO Q6H PRN pain #50 tabs 01/13/25 [Rx Confirmed 01/16/25] Exam Exam Patient is in no acute distress and is cooperative with the examination today. Breathing is nonlabored. In no respiratory distress. Bilateral extremities were evaluated and demonstrates sensation intact to light touch. Palpable pedal pulses are present. No significant edema is present. Bilateral hips were examined. The patient has no pain with log roll of the hips. Internal rotation to 30 degrees and external rotation to 30 degrees is painless. Negative FADIR. The left knee was examined. The left knee is in [varus] alignment. Range of motion from 0-115 degrees. Knee is stable to varus and valgus as well as AP translation with <5mm. Patient has a negative McMurrays. There is no pain with patellofemoral compression and no crepitus noted. The knee is tender to palpa tion [medially]. Right knee incision is clean dry and intact. Range of motion is 0 to 105 degrees Xrays demonstrate a knee replacement on the right in good alignment and position. The left knee demonstrates severe arthritis with complete joint space obliteration Medially and varus alignment. The left knee x-rays were from a year ago on 08/15/2023 and we will get new left knee x-rays Assessment and Plan Problem List (1) Arthritis of left knee: Status: Acute Plan: Netta Anne is a pleasant 53-year-old male with a prior right total knee replacement and severe arthritis of his left knee. He has tried multiple injections and has lost over 75 pounds now. He is waiting to get his left knee replaced and has [id number] arthritis. We are having difficulty getting approval for some reason. At this point it is very difficult to figure out what to do is he has [id number] arthritis and cannot work because of it. He would like to hold off on a cortisone injection on the left knee at this time because this would delay surgery and we are still waiting approval from insurance. The nature and purpose of the total knee replacement, alternative method(s) of treatment, the material risks involved, and the possibility of complications were fully explained to the patient. The patient does NOT have any of the following contraindications to TKA: - Active infection of the knee joint, OR - Active systemic bacteremia, OR - Active skin infection or open wound at surgical site, OR - Neuropathic arthritis, OR - Severe, rapidly progressive neurological disease, OR - Severe medical condition that makes risks of surgery outweigh the potential benefit The patient was told the most common risks and complications associated with a total knee replacement include, but are not limited to: blood clots in the leg, fatal pulmonary embolism, dislocation of the prosthesis, intraoperative and postoperative fractures of the femur or tibia, infection, failure of the prosthesis or grafting materials, complications from anesthesia, reactions to blood transfusions, postoperative leg length inequality, instability of the knee replacement, nerve damage or injury, vascular injury, delayed wound healing, infection, other injury or even . In addition, there are risks associated with anesthesia given during this operation. Also, the patient was told that after undergoing a total knee replacement there may still be persistent pain or disability. The patient was informed that the success of this operation in part depends upon the mechanical devices which are going to be implanted and that these devices can fail or malfunction, and may need to be repaired or replaced and there are no guarantees as to the longevity of this device or its parts and that it or its parts could fail prematurely. The patient was also notified that during the course of surgery, there may be a need to use bone graft from donors, and that any bone graft used will be carefully screened for communicable diseases, including AIDS, hepatitis, Deangelo-Creutzfeldt, or other diseases, but despite the screening procedures, there is a small chance that they could contract one of these diseases. Finally, the patient was asked to follow completely and fully with all advice and recommended treatments, and that recovery and ultimate outcome are affected by their compliance with recommended treatment. We discussed the risks, benefits and treatment alternatives, and the patient is interested in proceeding with surgery. We will try to set this up as expeditiously as possible. (2) History of total right knee replacement: Status: Acute Office Procedures GNS Level of Care Nursing/Assessment Patient Status: Established Patient Nursing Assessment/Reassesment: Medication Reconciliation, Update PMH in EMR and Vital Signs Coordination of Care: Complex Care and Chronic Disease 1-5, Education Complex Pt/Fam, Consent,records obtained, informed consent, Results/Orders obtained and Staff clarify orders Established Patient Charge Established Patient Point Assignment: 95 Established Patient Point Charge: Level 3 (80-115) OR Intake Visit Data Collection New Patient or Established: Established Patient (seen at [facility] within 3 years) Reason for Visit:: FOLLOW UP/INS DENIAL Seen by Clinical Staff ONLY (RN/MA): No PCP or OBGYN visit in last 3 months: Yes Hx Now: No Do You Feel Safe at Home: Yes Authorities Contacted: N/A Questionairres Past Medical History Past Medical History Have you ever been diagnosed with any of the following: Neurological Problems Seizures: No Cardiology Problems Congestive Heart Failure: No Respiratory Problems Chronic Obstructive Pulmonary Disease (COPD): No Smoking: No Smoking Exposure: No Stomache/Intestinal Problems Hepatitis: No Obesity: Yes Genital/Urinary Problems Renal Disease: No Musculoskeletal Problems Arthritis: Yes Endocrine Problems Diabetes Mellitus Type 1: No Diabetes Mellitus Type 2: No Other Problems Hospitalization: Yes (as a child 5 yrs old for surgery) Shingles: No Blood Transfusions: No Blood Transfusion Reaction: No Anesthesia Reactions: No Chicken Pox: Yes Measles: Yes Mumps: Yes Cancer: No Subjective Visit Visit for: follow up visit and knee Immunization / Flu Flu Vaccine in the Last 12 Months: No Flu Vaccine Exclusion Criteria: No Exclusion Criteria History of Present Illness Chief complaint: f/u weightloss Patient is doing well status post right knee replacement. He Has minimal pain. He had surgery on the right knee approximately 12months ago now. He has minimal pain and is doing fantastic with the right knee. The left knee is starting to affect his quality life and happiness. The pain has been ongoing for several years. He has tried home exercises in the past but is unable to because it is too painful. The patient has been doing 11 months of home exercises and has tried injections (>6) in his knee. He is also lost over 64 pounds in order to get a knee replacement. He is actually lost another 10 pounds in the last 2 months. I think he is as optimized as he can for surgery. We previously tried to do surgery but it was denied by insurance. At this point, I think he has exhausted conservative treatment and a total knee replacement is the only reasonable option given that he has tried everything already. He also did well with the contralateral side and has made every attempt to lose even more weight even though his BMI looks very good for his age at 35. Personal History Red flag PMH: BMI BMI Counceling provided: Yes Pain Pain level (0-10): 7 Pain duration: ALL DAY Pain location: inside (medial), outside (lateral) and anterior Pain quality: sharp, dull and aching Pain timing: night, increases with activity and stairs Associated signs & symptoms: numbness Ambulatory data Ambulatory device: none Walking distance (minutes): 10 Treatments Number of previous injections: 1 Improvement with previous injections: No Improvement with PT: No Improvement with NSAIDS: no Review of Systems Review of Systems: All systems negative unless otherwise noted in HPI.
== END 2025-01-16 11:20 | disposition home or self-care (01) ==
LOC: HODSRG 10:19
PROVIDERS: PCP Family Medicine; Referring Provider Family Medicine; Supervising Provider Orthopaedic Surgery Adult Reconstructive Orthopaedic Surgery; Visit Provider Orthopaedic Surgery Adult Reconstructive Orthopaedic Surgery
DX: M17.12 Unilateral primary osteoarthritis, left knee (principal); Z96.651 Presence of right artificial knee joint; E66.9 Obesity, unspecified; Z71.3 Dietary counseling and surveillance; Z68.37 Body mass index [BMI] 37.0-37.9, adult
CPT/HCPCS: 99213; G0463

== ENCOUNTER 2025-03-18 10:53 | Outpatient (AMB) | payer MEDICAID, SELFPAY ==
--- NOTE | 2025-03-18 11:16 | ORTHONT_ITS ---
Vital signs 03/18/25 11:17 Height 1.88 m Height Method Stated Weight 129.926 kg Weight Measurement Method Standing Scale BMI 36.7 BP 118/77 Blood Pressure Source Automatic Cuff Blood Pressure Location Right Upper Arm Position Sitting Respiration 20 Pulse 74 Pulse Source Monitor Temp 98.5 F Temp Source Temporal Artery Scan Pulse Oximetry (%) 97 Oxygen Delivery Method Room Air Med/Allergies Allergies & Medications Allergies No Known Allergies Allergy (Verified 03/18/25 11:18) Medication Reconciliation meloxicam 7.5 mg tablet 7.5 mg PO QDAY #45 tabs 08/15/23 [Rx Confirmed 03/18/25] atorvastatin 10 mg tablet 10 mg PO QDAY 11/24/23 [History Confirmed 03/18/25] furosemide 20 mg tablet (Lasix) 20 mg PO QDAY 11/24/23 [History Confirmed 03/18/25] semaglutide 1 mg/dose (4 mg/3 mL) subcutaneous pen injector (Ozempic) 1 mg subcut QWEEK 11/24/23 [History Confirmed 03/18/25] doxycycline hyclate 100 mg tablet 100 mg PO BID #14 tabs 11/27/23 [Rx Confirmed 03/18/25] pregabalin 75 mg capsule 75 mg PO BID #45 caps 11/27/23 [Rx Confirmed 03/18/25] sennosides 8.6 mg-docusate sodium 50 mg tablet (Senna-S) 1 tab-cap PO QDAY #30 tabs 11/27/23 [Rx Confirmed 03/18/25] acetaminophen 500 mg tablet (Acetaminophen Extra Strength) 1,000 mg (2 x 500 mg) PO Q6H PRN pain #90 tabs 12/12/23 [Rx Confirmed 03/18/25] oxycodone 5 mg tablet 5 mg PO Q6H PRN pain #28 tabs 12/23/23 [Rx Confirmed 03/18/25] cyclobenzaprine 5 mg tablet 5 mg PO QHS PRN muscle spasm #30 tabs 01/26/24 [Rx Confirmed 03/18/25] gabapentin 300 mg capsule 300 mg PO QHS #30 caps 01/26/24 [Rx Confirmed 03/18/25] meloxicam 7.5 mg tablet 7.5 mg PO QDAY #30 tabs 02/20/24 [Rx Confirmed 03/18/25] ibuprofen 600 mg tablet 600 mg PO Q6H PRN pain #50 tabs 01/13/25 [Rx Confirmed 03/18/25] Exam Exam Patient is in no acute distress and is cooperative with the examination today. Breathing is nonlabored. In no respiratory distress. Bilateral extremities were evaluated and demonstrates sensation intact to light touch. Palpable pedal pulses are present. No significant edema is present. Bilateral hips were examined. The patient has no pain with log roll of the hips. Internal rotation to 30 degrees and external rotation to 30 degrees is painless. Negative FADIR. The left knee was examined. The left knee is in [varus] alignment. Range of motion from 0-115 degrees. Knee is stable to varus and valgus as well as AP translation with <5mm. Patient has a negative McMurrays. There is no pain with patellofemoral compression and no crepitus noted. The knee is tender to palpatio n [medially]. Right knee incision is clean dry and intact. Range of motion is 0 to 105 degrees Xrays demonstrate a knee replacement on the right in good alignment and position. The left knee demonstrates severe arthritis with complete joint space obliteration Medially and varus alignment. The left knee x-rays were from a year ago on 08/15/2023 and we will get new left knee x-rays Assessment and Plan Problem List (1) Arthritis of left knee: Status: Acute Plan: Omid is a pleasant 53-year-old male with a prior right total knee replacement and severe arthritis of his left knee. He has tried multiple injections and has lost over 75 pounds now. He is waiting to get his left knee replaced and has [id number] arthritis. We are having difficulty getting approval for some reason. At this point it is very difficult to figure out what to do is he has [id number] arthritis and cannot work because of it. we are still waiting for insurance approval. Do a cortisone injection today and understands that this will delay his surgery 3 months as he cannot wait any longer recommend knee cortisone injection as patient would like to proceed with conservative treatment at this time. The risks and benefits of the procedure were reviewed with the patient and patient gave verbal consent to continue with the procedure. Procedure: performed by Dr. Thomas Using sterile technique the left knee was thoroughly prepped with alcohol, and approximately 1 cc of Depo-Medrol 80mg/mL and 4 cc of 0.2% ropivacaine was injected without resistance into the medial tibial femoral joint space. The patient tolerated the procedure. The nature and purpose of the total knee replacement, alternative method(s) of treatment, the material risks involved, and the possibility of complications were fully explained to the patient. The patient does NOT have any of the following contraindications to TKA: - Active infection of the knee joint, OR - Active systemic bacteremia, OR - Active skin infection or open wound at surgical site, OR - Neuropathic arthritis, OR - Severe, rapidly progressive neurological disease, OR - Severe medical condition that makes risks of surgery outweigh the potential benefit The patient was told the most common risks and complications associated with a total knee replacement include, but are not limited to: blood clots in the leg, fatal pulmonary embolism, dislocation of the prosthesis, intraoperative and postoperative fractures of the femur or tibia, infection, failure of the prosthesis or grafting materials, complications from anesthesia, reactions to blood transfusions, postoperative leg length inequality, instability of the knee replacement, nerve damage or injury, vascular injury, delayed wound healing, infection, other injury or even . In addition, there are risks associated with anesthesia given during this operation. Also, the patient was told that after undergoing a total knee replacement there may still be persistent pain or disability. The patient was informed that the success of this operation in part depends upon the mechanical devices which are going to be implanted and that these devices can fail or malfunction, and may need to be repaired or replaced and there are no guarantees as to the longevity of this device or its parts and that it or its parts could fail prematurely. The patient was also notified that during the course of surgery, there may be a need to use bone graft from donors, and that any bone graft used will be carefully screened for communicable diseases, including AIDS, hepatitis, Deangelo-Creutzfeldt, or other diseases, but despite the screening procedures, there is a small chance that they could contract one of these diseases. Finally, the patient was asked to follow completely and fully with all advice and recommended treatments, and that recovery and ultimate outcome are affected by their compliance with recommended treatment. We discussed the risks, benefits and treatment alternatives, and the patient is interested in proceeding with surgery. We will try to set this up as expeditiously as possible. (2) History of total right knee replacement: Status: Acute Office Procedures GNS Level of Care Nursing/Assessment Patient Status: Established Patient Nursing Assessment/Reassesment: Medication Reconciliation, Update PMH in EMR and Vital Signs Coordination of Care: Complex Care and Chronic Disease 1-5, Education Complex Pt/Fam, Consent,records obtained, informed consent, Results/Orders obtained and Staff clarify orders Established Patient Charge Established Patient Point Assignment: 95 Established Patient Point Charge: EP Level 3 (80-115) Surgical Proc/IM SQ injection Minor Surgical Procedure: Yes (KNEE INJECTION LEFT) Medication Given Medication Given Medication Given: Yes Documented Dose Given: 1 Route: Infiitration Medication Given Medication Given Medication Given: Yes Documented Dose Given: 4 Route: Infiitration Office Meds methylprednisolone acetate 80 mg/mL suspension for injection Performing Provider: Barrett Thomas MD Performing Location: [facility] Administered by: Barrett Thomas MD on 03/18/25 11:43 Dose Route Admin Location Dispensed Lot Number Expiration Date Pack age [facility] Human Resources Team Member 80 mg intra-articular 1 mL [id number] 12/11/26 [address]-5 [id number] [employer] ropivacaine (PF) 2 mg/mL (0.2 %) injection solution Performing Provider: Barrett Thomas MD Performing Location: [facility] Administered by: Barrett Thomas MD on 03/18/25 11:43 Dose Route Admin Location Dispensed Lot Number Expiration Date Pack age [facility] Human Resources Team Member 20 mL Infiltration 20 mL [id number] 06/13/27 79455-390-09 [id number] [facility] Intake Visit Data Collection New Patient or Established: Established Patient (seen at [facility] within 3 years) Reason for Visit:: LEFT KNEE INJECTION Seen by Clinical Staff ONLY (RN/MA): No PCP or OBGYN visit in last 3 months: Yes Hx Now: No Do You Feel Safe at Home: Yes Authorities Contacted: N/A Questionairres Past Medical History Past Medical History Have you ever been diagnosed with any of the following: Neurological Problems Seizures: No Cardiology Problems Congestive Heart Failure: No Respiratory Problems Chronic Obstructive Pulmonary Disease (COPD): No Smoking: No Smoking Exposure: No Stomache/Intestinal Problems Hepatitis: No Obesity: Yes Genital/Urinary Problems Renal Disease: No Musculoskeletal Problems Arthritis: Yes Endocrine Problems Diabetes Mellitus Type 1: No Diabetes Mellitus Type 2: No Other Problems Hospitalization: Yes (as a child 5 yrs old for surgery) Shingles: No Blood Transfusions: No Blood Transfusion Reaction: No Anesthesia Reactions: No Chicken Pox: Yes Measles: Yes Mumps: Yes Cancer: No Subjective Visit Visit for: follow up visit, knee (LEFT) and injections Immunization / Flu Flu Vaccine in the Last 12 Months: No Flu Vaccine Exclusion Criteria: No Exclusion Criteria History of Present Illness Chief complaint: f/u weightloss Patient is doing well status post right knee replacement. He Has minimal pain. He had surgery on the right knee approximately 18 months ago now. He has minimal pain and is doing fantastic with the right knee. The left knee is starting to affect his quality life and happiness. The pain has been ongoing for several years. He has tried home exercises in the past but is unable to because it is too painful. The patient has been doing 11 months of home exercises and has tried injections (>6) in his knee. He is actually lost another 10 pounds in the last 2 months. I think he is as optimized as he can for surgery. We previously tried to do surgery but it was denied by insurance. At this point, I think he has exhausted conservative treatment and a total knee replacement is the only reasonable option given that he has tried everything already. He also did well with the contralateral side and has made every attempt to lose even more weight even though his BMI looks very good for his age at 34. He has now lost a total of 80 pounds since his prior knee replacement Personal History Red flag PMH: BMI BMI Counceling provided: Yes Pain Pain level (0-10): 7 Pain duration: ALL DAY Pain location: inside (medial), outside (lateral) and anterior Pain quality: sharp, dull and aching Pain timing: night, increases with activity and stairs Associated signs & symptoms: numbness Ambulatory data Ambulatory device: none Walking distance (minutes): 10 Treatments Number of previous injections: 1 Improvement with previous injections: No Improvement with PT: No Improvement with NSAIDS: no Review of Systems Review of Systems: All systems negative unless otherwise noted in HPI.
[2025-03-18 11:17] VITALS: BP 118/77; PULSE 74; RESP 20; TEMP 36.9; O2SAT 97; BMI 36.7
== END 2025-03-18 11:26 | disposition home or self-care (01) ==
PROVIDERS: PCP Family Medicine; Referring Provider Family Medicine; Supervising Provider Orthopaedic Surgery Adult Reconstructive Orthopaedic Surgery; Visit Provider Orthopaedic Surgery Adult Reconstructive Orthopaedic Surgery
DX: M17.12 Unilateral primary osteoarthritis, left knee (principal); Z96.651 Presence of right artificial knee joint; E66.9 Obesity, unspecified; Z68.36 Body mass index [BMI] 36.0-36.9, adult
CPT/HCPCS: 20610; 99213; J1010; J2795; G0463